=== PATIENT | male | born 1935 | race African-American/Black ===

== ENCOUNTER 2018-09-02 12:30 | Emergency (ER) | payer OTHER ==
[~2018-09-02] VITALS: Ht 180.3 cm; Wt 82.1 kg
[~2018-09-02 12:30] MED LIST: AMLO2.5T4 PO; CARV3.12 PO; ERGO500014 PO; FERR325T28 PO; FURO20TA4 PO; HYDR-4075 PO; ISOS5TAB PO; POTA20TA74 PO; WARF7.5T49 PO
--- NOTE | 2018-09-02 12:37 | NUR ---
PT BIBA RA 89 From Home "Generalized weakness. 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
--- NOTE | 2018-09-02 12:45 | NUR ---
IV LINE ESTABLISHED, LABS DRAWNED AND SENT TO LAB.
--- NOTE | 2018-09-02 12:53 | NUR ---
DR. SANTOS AT BEDSIDE FOR EVAL.
[2018-09-02 13:19] LABS: BASOPHILS # (AUTO) 0.1 /CMM (0.0-0.2); BASOPHILS % (AUTO) 1.4 % (0.0-2.0); EOSINOPHILS % (AUTO) 2.8 % (0.0-6.0); HEMATOCRIT 40 % (39-51); HEMOGLOBIN 12.8 g/dL (13.5-17.5); LYMPHOCYTES % (AUTO) 27.2 % (20.0-44.0); MEAN CORPUSCULAR HGB CONC 32 g/dl (31.0-36.0); MEAN CORPUSCULAR VOLUME 84 fL (80-96); MONOCYTES # (AUTO) 0.4 /CMM (0.1-1.30); NEUTROPHILS # (AUTO) 2.1 /CMM (1.8-8.9); NEUTROPHILS % (AUTO) 57.6 % (43.0-81.0); PLATELET COUNT (AUTO) 87 /CMM (150-450); RED BLOOD CELL COUNT(AUTO) 4.73 MIL/uL (4.5-6.0); WHITE BLOOD COUNT (AUTO) 3.7 K/uL (4.3-11.0)
--- NOTE | 2018-09-02 13:28 | NUR ---
URINE SPECIMEN COLLECTED AND SENT TO LAB.
[2018-09-02] MEDS ORDERED: IV NS 0.9% 500 ML BAG IV ONE (13:30)
[2018-09-02 13:32] LABS: ALANINE AMINOTRANSFERASE 7 U/L (12-78); ALKALINE PHOSPHATASE 68 U/L (46-116); ASPARTATE AMINOTRANSFERASE 30 U/L (15-37); BILIRUBIN,DIRECT 0.6 mg/dL (0.0-0.2); BILIRUBIN,TOTAL 1.1 mg/dL (0.2-1.0); CALCIUM, SERUM 8.5 mg/dL (8.5-10.1); CARBON DIOXIDE 28 mmol/L (21-32); CHLORIDE 97 mmol/L (98-107); CREATININE 6.6 mg/dL (0.6-1.3); GLUCOSE 79 mg/dL (74-106); POTASSIUM 4.1 mmol/L (3.5-5.1); SODIUM SERUM 132 mmol/L (136-145); TOTAL PROTEIN, SERUM 7.2 g/dL (6.4-8.2); UREA NITROGEN, BLOOD 30 mg/dL (7-18)
--- NOTE | 2018-09-02 13:32 | NUR ---
REGULATORY AFFAIRS ANALYST AT BEDSIDE FOR XRAY.
[2018-09-02 13:38] LABS: EOSINOPHILS % (MANUAL) 4 % (0-4); LYMPHOCYTES % (MANUAL) 26 % (16-48); MONOCYTES % (MANUAL) 4 % (0-11.0); NEUTROPHILS % (MANUAL) 66 (42-76)
[2018-09-02 13:44] LABS: APPEARANCE,URINE Slightly Cloudy (CLEAR); BILIRUBIN,URINE SMALL (NEGATIVE); BLOOD, URINE Moderate Ery/uL (NEGATIVE); COLOR,URINE Yellow (YELLOW); KETONES,URINE Trace (NEGATIVE); LEUKOCYTE ESTERASE ,URINE Small (NEGATIVE); NITRITE, URINE Negative (NEGATIVE); PROTEIN,URINE 100 mg/dl (NEGATIVE); UGLUCOSE Negative (NEGATIVE)
[2018-09-02 13:54] LABS: WBC,URINE TOO NUMEROUS TO COUN /HPF (0-3)
[2018-09-02 13:55] LABS: BACTERIA,URINE Many /HPF (None Seen); SQUAMOUS EPITHELIAL CELL,UR Few /HPF (None Seen)
--- NOTE | 2018-09-02 13:57 | NUR ---
CALLED ERICA DARNELL. AWAITING DR TO CALL OUR ER
--- NOTE | 2018-09-02 14:23 | NUR ---
[facility] CALLED BACK. ACCEPTED AT [facility], UNDER THE CARE DR. SUAREZ. TRANSPORTATION FLOAT NURSE TIME AT 1530. [phone] TO GIVE REPORT. PRIMARY NURSE AWARE.
[2018-09-02] MEDS ORDERED: CEFTRIAXONE 1GM BAG (ER ONLY) 1 GM/50 ML PIGGYBACK IV ONE (14:30)
[2018-09-02] MEDS ORDERED: CEFTRIAXONE 1GM BAG (ER ONLY) 50 ML IV ONE (14:32)
--- NOTE | 2018-09-02 14:39 | NUR ---
PT IS BACK FROM THE CT SCAN, AWAITING RESULTS.
--- NOTE | 2018-09-02 15:00 | NUR ---
REPORT GIVEN TO JEREMY BOWIE IN [facility] FOR KIM.
--- NOTE | 2018-09-02 15:10 | NUR ---
REPORT GIVEN TO EMS FOR PT TRANSFER.
[2018-09-02 15:11] VITALS: BP 116/68
== END 2018-09-02 15:12 | disposition short-term general hospital (02) ==
LOC: ER 12:30
DX: R53.1 Weakness (principal); N39.0 Urinary tract infection, site not specified; R55 Syncope and collapse; I12.0 Hypertensive chronic kidney disease with stage 5 chronic kidney disease or end stage renal disease; N18.6 End stage renal disease; Z99.2 Dependence on renal dialysis; Z90.5 Acquired absence of kidney; Z79.01 Long term (current) use of anticoagulants; Z79.899 Other long term (current) drug therapy
CPT/HCPCS: 36415; 70450; 71045; 80048; 80076; 81001; 84484; 85025; 87077; 87086; 87186; 93005; 96365; 99285; J0696; J7040; 81000-TC